=== PATIENT | female | born 2000 ===

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

== ENCOUNTER 2018-01-31 01:41 | Emergency (ER) | payer BC, MEDICAID ==
[2018-01-31 01:41] VITALS: BMI 34.9
[2018-01-31 02:04] VITALS: RESP 18
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
[2018-01-31 03:44] LABS: BASO % 0.2 % (0.0-2.0); EOS % 0.5 % (0.0-4.0); HEMOGLOBIN 14.1 g/dL (12.0-16.0); LYMPH # 1.6 K/uL (1.0-4.3); LYMPH % 24.7 % (20.0-40.0); MEAN CELL VOLUME 95.4 fl (81.0-99.0); MEAN CORPUSCULAR HGB CONC 34.5 g/dL (33.0-37.0); MEAN PLATELET VOLUME 8.5 fl (7.2-11.7); MONO # 0.3 K/uL (0.0-0.8); MONO % 4.6 % (0.0-10.0); NEUT # 4.5 K/uL (1.8-7.0); NRBC % 0.1 % (0.0-0.0); RBC 4.28 Mil/uL (3.80-5.20); RED CELL DISTRIBUTION WIDTH 12.8 % (11.5-14.5); WHITE BLOOD COUNT 6.4 K/uL (4.8-10.8)
[2018-01-31 03:45] LABS: ALB/GLOB RATIO 1.3 (1.0-2.1); ALBUMIN 3.9 g/dL (3.5-5.0); ALT/SGPT 24 U/L (9-52); AST/SGOT 23 U/L (14-36); BLOOD UREA NITROGEN 12 mg/dl (7-17); CALCIUM 8.6 mg/dL (8.4-10.2); GFR NON-AFRICAN AMERICAN > 60
[2018-01-31 03:55] LABS: BARBITURATES, UR NEGATIVE (NEGATIVE); BENZODIAZEPINES, UR NEGATIVE (NEGATIVE); OPIATES, UR NEGATIVE (NEGATIVE); PHENCYCLIDINE, UR NEGATIVE (NEGATIVE)
[2018-01-31 04:11] LABS: SQUAMOUS EPITHIAL 6 /hpf (0-5); URINE BACTERIA RARE (<OCC); URINE BILIRUBIN NEGATIVE (NEGATIVE); URINE BLOOD NEGATIVE (NEGATIVE); URINE CLARITY CLOUDY (Clear); URINE COLOR YELLOW (YELLOW); URINE GLUCOSE (UA) NEG (Normal); URINE LEUKOCYTE ESTERASE NEG Leu/uL (Negative); URINE PROTEIN 30 mg/dL (NEGATIVE); URINE UROBILINOGEN 0.2-1.0 mg/dL (0.2-1.0)
--- NOTE | 2018-01-31 05:10 | ED PDOC ---
- Laboratory Results Result Diagrams: 01/31/18 03:15 01/31/18 03:15 - ECG O2 Sat by Pulse Oximetry: 98 Medical Decision Making Medical Decision Makin Patient care endorsed from LUCI Gutierres to this provider pending crisis evaluation. 0521 As per sheet ironworker, patient to be discharged as an outpatient as per Dr. Groves with diagnosis of depression. pt awake and alert in no distress stable for dc Scribe Attestation: Documented by Roseann Sharpe, acting as a scribe for Markie Cook MD. Provider Scribe Attestation: All medical record entries made by the Scribe were at my direction and personally dictated by me. I have reviewed the chart and agree that the record accurately reflects my personal performance of the history, physical exam, medical decision making, and the department course for this patient. I have also personally directed, reviewed, and agree with the discharge instructions and disposition. Disposition - Clinical Impression Clinical Impression: Facial contusion, Bite of left lower leg, Alcohol use, Depression - POA Present On Arrival: None - Disposition Disposition: Routine/Home Disposition Time: 06:00 Condition: IMPROVED Additional Instructions: follow up as an outpatient as per recommendations return to the ED with any worsening or concerning symptoms Instructions: Depression, Adult (DC), Alcohol Poisoning (DC) Forms: [employer] (Kittitian)
[2018-01-31 06:14] VITALS: BP 119/58; PULSE 87; TEMP 98.3
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
[2018-01-31 20:49] VITALS: O2SAT 98
== END 2018-01-31 06:15 | disposition home or self-care (01) ==
LOC: H.ER 01:41
DX: S00.83XA Contusion of other part of head, initial encounter (principal); S81.852A Open bite, left lower leg, initial encounter; Y04.0XXA Assault by unarmed brawl or fight, initial encounter; F10.10 Alcohol abuse, uncomplicated; F41.9 Anxiety disorder, unspecified; F32.9 Major depressive disorder, single episode, unspecified
CPT/HCPCS: 70450; 70486; 80053; 81003; 81025; 85025; 99283; G0480

== ENCOUNTER 2018-04-05 10:19 | Emergency (ER) | payer BC, MEDICAID ==
[2018-04-05 10:48] VITALS: O2SAT 98
[2018-04-05 10:49] VITALS: BMI 29.0
--- NOTE | 2018-04-05 12:37 | ED PDOC ---
HPI: Female Pain Time Seen by Provider: 04/05/18 11:51 Chief Complaint (Nursing): Breast Problem Chief Complaint (Provider): leg cramping/pelvic cramping History/Exam Limitations: no limitations Onset/Duration Of Symptoms: Days (>30) Current Symptoms Are (Timing): Still Present Severity: Mild Quality Of Discomfort: Cramping, Pressure Alleviating Factors: None (Pt presents to the ED complaining of her treating DOCUMENTATION ENGINEER refusing to remove her nexplanon as well as bilateral breast tenderness and leg cramping; pt denies nvd, fever or other synptoms ) Past Medical History Reviewed: Historical Data, Nursing Documentation, Vital Signs Vital Signs: Last Vital Signs Temp 98.3 F 04/05/18 10:45 Pulse 90 04/05/18 10:45 Resp 20 04/05/18 10:45 BP 128/77 04/05/18 10:45 Pulse Ox 98 04/05/18 10:45 - Medical History PMH: Anxiety, Asthma, Depression, Pneumonia, Sleep Apnea (as a chid) Denies: Diabetes, Hepatitis, HIV, HTN, Chronic Kidney Disease, Seizures, Sexually Transmitted Disease - Surgical History Surgical History: Tonsillectomy (and adenoidectomy) - Family History Family History: States: Unknown Family Hx - Home Medications Home Medications: Ambulatory Orders Medication Instructions Recorded Amoxicillin/Clavulanate [Augmentin 1 tab PO BID #14 tab 01/03/16 875 MG-125 MG] DULoxetine [Cymbalta] 40 mg PO DAILY 01/03/16 lamoTRIgine [LaMICtal] 75 mg PO DAILY 01/03/16 traZODone [trazodone Hydrochloride] 100 mg PO HS 01/03/16 Cholecalciferol (Vitamin D3) 2,000 unit PO DAILY 01/10/16 [Vitamin D3] Lorazepam [Ativan] 0.5 mg PO BID PRN 01/10/16 Doxycycline Monohydrate 100 mg PO BID #28 tablet 04/17/16 Metronidazole [Flagyl] 500 mg PO BID #28 tab 04/17/16 traMADol [Ultram] 50 mg PO TID PRN #15 tab 04/17/16 Cephalexin [cephalexin] 500 mg PO BID #14 cap 10/23/17 Mupirocin 2% Cream [Bactroban 30 applic TOP BID #1 tube 10/23/17 Cream] Sulfamethoxazole/Trimethoprim 1 tab PO BID 5 Days tab 10/23/17 [Bactrim DS 800 mg-160 mg] Zolpidem [Ambien] 5 mg PO HS #1 tab 10/23/17 Clindamycin [Cleocin] 1 tab PO QID #28 cap 12/29/17 Naproxen 375 mg PO Q8 PRN #21 tablet 12/29/17 Omeprazole Magnesium [Prilosec Otc] 20 mg PO DAILY #7 tablet. 12/29/17 Ondansetron [Zofran Odt] 4 mg PO Q8 PRN #10 tab.rapdis 12/29/17 Naproxen Sodium 220 mg PO BID #20 tablet 04/05/18 - Allergies Allergies/Adverse Reactions: Allergies Allergy/AdvReac Type Severity Reaction Status Date / Time No Known Allergies Allergy Verified 04/05/18 11:41 Review of Systems ROS Statement: Except As Marked, All Systems Reviewed And Found Negative Constitutional: Negative for: Fever, Chills, Sweats Cardiovascular: Negative for: Chest Pain Genitourinary Female: Positive for: Pelvic Pain. Negative for: Frequency, Incontinence, Hematuria, Vaginal Discharge, Vaginal Bleeding Physical Exam - Reviewed Nursing Documentation Reviewed: Yes Vital Signs Reviewed: Yes - Physical Exam Appears: Positive for: Well, Non-toxic, No Acute Distress. Negative for: Uncomfortable Head Exam: Positive for: ATRAUMATIC, NORMAL INSPECTION Skin: Positive for: Normal Color, Warm, Dry. Negative for: Diaphoresis, Pallor, Rash, Jaundice Eye Exam: Positive for: Normal appearance. Negative for: Nystagmus, Periorbital swelling, Periorbital tenderness Neck: Positive for: Normal, Painless ROM, Supple. Negative for: Decreased ROM Cardiovascular/Chest: Positive for: Regular Rate, Rhythm Respiratory: Positive for: Normal Breath Sounds Pulses-Carotid (L): 2+ Pulses-Carotid (R): 2+ Extremity: Positive for: Tenderness. Negative for: Calf Tenderness, Capillary Refill, Swelling - Laboratory Results Result Diagrams: 04/05/18 12:55 04/05/18 12:55 - ECG O2 Sat by Pulse Oximetry: 98 Medical Decision Making Medical Decision Making: Consulted via telephone with a Dr Gongora" at the [facility] in [facility]. Dr Benavides was the individual that inserted the pt nexplanon and refuses to take it out. Discussed with FAST FOOD ASSISTANT RESTAURANT MANAGER at this office, Jcarlos Romero FAST FOOD ASSISTANT RESTAURANT MANAGER who advised that she would indeed take this device out, but that the patient needs only to make an appointment to have it performed DVT Ruled out US of pelvic region identifies small ovarian cyst Pt will be discharged as she is stable and requires no emerency or other treatment from this facility Disposition - Clinical Impression Clinical Impression: Ovarian cyst - Patient ED Disposition Is Patient to be Admitted: No Doctor Will See Patient In The: Office Counseled Patient/Family Regarding: Studies Performed, Diagnosis, Need For Followup - Disposition Disposition: Routine/Home Disposition Time: 15:49 Condition: STABLE Additional Instructions: follow up with your PMD and with Manuel for Nexplanon removal if still desired Prescriptions: Naproxen Sodium 220 mg PO BID #20 tablet Instructions: Ovarian Cysts Forms: [employer] (Macedonian)
[2018-04-05 13:35] LABS: BASO % 0.4 % (0.0-2.0); EOS # 0.1 K/uL (0.0-0.7); EOS % 1.7 % (0.0-4.0); HEMOGLOBIN 15.2 g/dL (12.0-16.0); LYMPH # 3.4 K/uL (1.0-4.3); LYMPH % 41.5 % (20.0-40.0); MEAN CELL VOLUME 94.8 fl (81.0-99.0); MEAN CORPUSCULAR HEMOGLOBIN 32.5 pg (27.0-31.0); MEAN CORPUSCULAR HGB CONC 34.3 g/dL (33.0-37.0); MEAN PLATELET VOLUME 8.3 fl (7.2-11.7); MONO # 0.6 K/uL (0.0-0.8); NEUT % 49.4 % (50.0-75.0); RBC 4.68 Mil/uL (3.80-5.20); RED CELL DISTRIBUTION WIDTH 12.4 % (11.5-14.5); WHITE BLOOD COUNT 8.1 K/uL (4.8-10.8)
[2018-04-05 13:38] LABS: SQUAMOUS EPITHIAL 1 /hpf (0-5); URINE BACTERIA RARE (<OCC); URINE BILIRUBIN NEGATIVE (NEGATIVE); URINE BLOOD NEGATIVE (NEGATIVE); URINE CLARITY CLOUDY (Clear); URINE COLOR YELLOW (YELLOW); URINE GLUCOSE (UA) NEG (NEGATIVE); URINE LEUKOCYTE ESTERASE NEG Leu/uL (Negative); URINE PROTEIN NEGATIVE (NEGATIVE); URINE UROBILINOGEN 0.2-1.0 mg/dL (0.2-1.0)
[2018-04-05 13:46] LABS: ALB/GLOB RATIO 1.3 (1.0-2.1); ALBUMIN 4.3 g/dL (3.5-5.0); ALT/SGPT 20 U/L (9-52); AST/SGOT 18 U/L (14-36); BLOOD UREA NITROGEN 13 mg/dl (7-17); CALCIUM 9.4 mg/dL (8.4-10.2); GFR NON-AFRICAN AMERICAN > 60
--- NOTE | 2018-04-05 15:33 | US ---
Date of service: 04/05/2018 HISTORY: pelvic pain COMPARISON: Transabdominal and transvaginal pelvic ultrasound 12/15/2014. TECHNIQUE: Transabdominal and transvaginal pelvic ultrasound was performed with longitudinal and transverse images submitted for interpretation. FINDINGS: UTERUS: Measures 8.6 x 4.7 x 3.6 cm. Normal in size and appearance. No fibroid or other mass lesion seen. ENDOMETRIUM: Measures 3.0 mm in diameter. Unremarkable. CERVIX: No cervical abnormality identified. RIGHT OVARY: Measures 2.2 x 2.1 x 1.5 cm. No solid mass. Normal flow. LEFT OVARY: Measures 3.5 x 3.2 x 2.4 cm. No solid mass. Normal flow. A likely dominant follicle seen in the central left ovary measuring 2.5 cm greatest dimension. FREE FLUID: No significant free fluid noted. OTHER FINDINGS: None. IMPRESSION: 2.5 cm simple cyst left ovary potentially reflecting dominant follicle though other etiologies are possible. No additional significant interval change. Right ovary appears unremarkable as well as uterus, endometrium and cervix. No evidence to suggest ovarian torsion bilaterally.
--- NOTE | 2018-04-05 15:36 | US ---
Date of service: 04/05/2018 PROCEDURE: Bilateral lower extremity venous duplex Doppler. HISTORY: maxime positive; nexplanon related: ro dvt COMPARISON: None available. TECHNIQUE: Grayscale and duplex Doppler ultrasound was performed of the left lower extremity major deep veins including graded compression, augmentation, grayscale and color Doppler analysis. FINDINGS: Good, normal phasic blood flow is appreciated as well as compressibility and augmentation at the left common and superficial femoral as well as popliteal veins bilaterally. Post tibial veins are patent bilaterally as well. No suspicious incidental findings otherwise. OTHER FINDINGS: None. IMPRESSION: No sonographic evidence of deep venous thrombosis bilateral lower extremities.
[2018-04-05 16:35] VITALS: BP 134/68; PULSE 88; RESP 16; TEMP 98.6
== END 2018-04-05 16:36 | disposition home or self-care (01) ==
LOC: H.ER 10:19
DX: N83.209 Unspecified ovarian cyst, unspecified side (principal); J45.909 Unspecified asthma, uncomplicated; Z86.59 Personal history of other mental and behavioral disorders
CPT/HCPCS: 76830; 80053; 81003; 81025; 85025; 93970; 96372; 99283; J1885